=== PATIENT | female | born 1985 | race Caucasian/White ===

== ENCOUNTER → 2016-12-20 | Outpatient (CLI) | payer BC ==
[~2016-12-20] MED LIST: CONCERTA18 MG; LOPRESSOR 225 MG/TAB; OMNICEF 300MG300 MG PO
== END ==
LOC: BHSO 15:32
DX: F90.0 Attention-deficit hyperactivity disorder, predominantly inattentive type (principal)

== ENCOUNTER → 2017-01-01 | Outpatient (CLI) | payer BC | LOC: BHSO 10:30 | DX: F42.8 Other obsessive-compulsive disorder (principal) ==

== ENCOUNTER → 2017-02-07 | Outpatient (CLI) | payer BC | LOC: BHSO 15:33 | DX: F90.0 Attention-deficit hyperactivity disorder, predominantly inattentive type (principal) ==

== ENCOUNTER → 2017-04-11 | Outpatient (CLI) | payer BC | LOC: BHSO 14:53 | DX: F90.0 Attention-deficit hyperactivity disorder, predominantly inattentive type (principal) ==